=== PATIENT | female | born 1995 | race Caucasian/White ===

== ENCOUNTER 2016-05-03 17:39 | Emergency (ER) | payer OTHER ==
[~2016-05-03] VITALS: Ht 163.8 cm; Wt 63.6 kg
[~2016-05-03 17:39] MED LIST: ACYC400T2 PO; BACTDS PO; IBUP400T22 PO; MUPI22OI2 TOP; ONDA4TAB35 PO
[2016-05-03 18:52] VITALS: Ht 163.8 cm; Wt 63.6 kg
[2016-05-03] MEDS ORDERED: KENC1 TOP (19:14)
[2016-05-03] MEDS ORDERED: HYDR-3011 PO (19:15)
--- NOTE | 2016-05-03 19:48 | ERD ---
ER Documentation Chief Complaint Date/Time DATE: 05/03/16 TIME: 19:46 Chief Complaint RASH BILATERAL POSTERIOR KNEE X2 DAYS DENIES FEVER HPI 21-year-old female presents here in emergency department for complaint of rash on bilateral back of the knee for 2 days. Patient's complaining of itching. Patient denies any fever or chills. Patient denies any rash in other parts of the body. Patient denies any open wounds. Patient did not take any medications of symptoms. ROS All systems reviewed and are negative except as per history of present illness. Medications Home Meds Active Scripts Hydroxyzine Hcl* (Hydroxyzine Hcl*) 25 Mg Tablet, 25 MG PO Q8H Y for ITCHING, # 30 TAB Prov:ELVIRA OLIVAS NP 05/03/16 Triamcinolone Acetonide (Triamcinolone Acetonide) 0.1% - 15 Gm Cream.gm., 1 APPLIC TOP BID, #1 TUB Prov:ELVIRA OLIVAS NP 05/03/16 Mupirocin* (Bactroban*) 2% -22 Gram Oint...g., 1 APPLIC TOP BID for 7 Days, EA Prov:KEATON NAIK MD 11/22/15 Sulfamethoxazole-Trimethoprim* (Bactrim* DS) 800-160 Mg Tab, 1 TAB PO BID, #14 TAB Prov:KEATON NAIK MD 11/22/15 Acyclovir* (Acyclovir*) 400 Mg Tablet, 400 MG PO TID for 5 Days, TAB Prov:EKATON NAIK MD 11/22/15 Ibuprofen* (Motrin*) 400 Mg Tab, 400 MG PO Q6, #30 TAB 0 Refills Prov:MARGIE ROWLAND PA-C 05/08/15 Ondansetron Hcl* (Zofran* ODT) 4 mg -ODT Tab.disper, 4 MG PO DAILY Y for NAUSEA AND/OR VOMITING, #10 TAB 0 Refills Prov:MARGIE ROWLAND PA-C 05/08/15 Allergies Allergies: Coded Allergies: No Known Drug Allergies (Verified Allergy, Unknown, 11/22/15) PMhx/Soc Medical and Surgical Hx: pt denies Medical Hx, pt denies Surgical Hx History of Surgery: No Anesthesia Reaction: No Hx Neurological Disorder: No Hx Respiratory Disorders: No Hx Cardiac Disorders: No Hx Psychiatric Problems: No Hx Miscellaneous Medical Probl: No Hx Alcohol Use: No Hx Substance Use: No Hx Tobacco Use: No FmHx Family History: No coronary disease, No diabetes, No other Physical Exam Vitals Vital Signs Date Time Temp Pulse Resp B/P Pulse Ox O2 Delivery O2 Flow Rate FiO2 05/03/16 18:52 99.8 96 20 110/62 98 Physical Exam GENERAL: The patient is well developed and appropriate for usual state of health, in no apparent distress. CHEST: Clear to auscultation bilaterally. There are no rales, wheezes or rhonchi. HEART: Regular rate and rhythm. No murmurs, clicks, rubs or gallops. No S3 or S4. ABDOMEN: Soft, nontender and nondistended. Good bowel sounds. No rebound or guarding. No gross peritonitis. No gross organomegaly or masses. No Bailey sign or McBurney point tenderness. BACK: No midline or flank tenderness. EXTREMITIES: Equal pulses bilaterally. There is no peripheral clubbing, cyanosis or edema. No focal swelling or erythema. Full range of motion. Grossly neurovascularly intact. NEURO: Alert and oriented. Cranial nerves 2-12 intact. Motor strength in all 4 extremities with 5/5 strength. Sensation grossly intact. Normal speech and gait. SKIN: Maculopapular rash noted in the back of the knee. There is no apparent ecchymosis or petechia. The skin is warm and dry. HEMATOLOGIC AND LYMPHATIC: There is no evidence of excessive bruising or lymphedema. No gross cervical, axillary, or inguinal lymphadenopathy. Procedures/MDM Medical decision making: Patient's symptoms of most likely consistent with possible dermatitis, possible eczema, noted to be contagious rash at this time. No symptoms of any sepsis. No symptoms of any coagulopathies. No symptoms of any petechiae. Patient was given for hydroxyzine, triamcinolone 1% cream, to apply on affected area, take medications as prescribed. Patient is advised to return to emergency department for any worsening symptoms. Departure Diagnosis: Primary Impression: Dermatitis Condition: Stable Patient Instructions: Atopic Dermatitis (Eczema) ELVIRA OLIVAS NP May 03, 2016 19:48
== END 2016-05-03 19:17 | disposition home or self-care (01) ==
LOC: E/R 17:39
DX: L25.9 Unspecified contact dermatitis, unspecified cause (principal)
CPT/HCPCS: 99284

== ENCOUNTER 2016-06-13 00:08 | Emergency (ER) | payer OTHER ==
[~2016-06-13] VITALS: Ht 162.6 cm; Wt 65.0 kg
[~2016-06-13 00:08] MED LIST changes: +HYDR-3011 PO; +KENC1 TOP
[2016-06-13 00:13] VITALS: Ht 162.6 cm; Wt 65.0 kg
[2016-06-13] MEDS ORDERED: DIPHENHYDRAMINE 25 MG CAP PO ONE (02:00)
[2016-06-13] MEDS ORDERED: NAPH15DR22 BOTH EYES (02:03)
[2016-06-13] MEDS ORDERED: BEN50 PO (02:03)
--- NOTE | 2016-06-13 02:20 | ERD ---
ER Documentation Chief Complaint Date/Time DATE: 06/13/16 TIME: 02:15 Chief Complaint under eye swelling started an hr ago HPI 21-year-old female presents to emergency department for complaints of swelling on bilateral facial area surrounding bilateral eyes after rubbing eyes 1 hour prior to arrival. Patient rubbed both eyes, it becomes more swollen afterwards. Patient does not have any stridor or shortness of breath. Patient did not take any medications of symptoms. Patient is complaining of itching of affected area. Patient denies any eye pain. Patient denies any fever or chills. ROS All systems reviewed and are negative except as per history of present illness. Medications Home Meds Active Scripts Diphenhydramine Hcl* (Benadryl*) 50 Mg Cap, 50 MG PO Q6, #30 CAP Prov:ELVIRA OLIVAS NP 06/13/16 Naphazoline-Pheniramine* (Visine-A*) 15 Ml Drops, 2 DROP BOTH EYES Q4H Y for eye itching, #1 BOT Prov:ELVIRA OLIVAS NP 06/13/16 Hydroxyzine Hcl* (Hydroxyzine Hcl*) 25 Mg Tablet, 25 MG PO Q8H Y for ITCHING, # 30 TAB Prov:ELVIRA OLIVAS NP 05/03/16 Triamcinolone Acetonide (Triamcinolone Acetonide) 0.1% - 15 Gm Cream.gm., 1 APPLIC TOP BID, #1 TUB Prov:ELVIRA OLIVAS NP 05/03/16 Mupirocin* (Bactroban*) 2% -22 Gram Oint...g., 1 APPLIC TOP BID for 7 Days, EA Prov:KEATON NAIK MD 11/22/15 Sulfamethoxazole-Trimethoprim* (Bactrim* DS) 800-160 Mg Tab, 1 TAB PO BID, #14 TAB Prov:KEATON NAIK MD 11/22/15 Acyclovir* (Acyclovir*) 400 Mg Tablet, 400 MG PO TID for 5 Days, TAB Prov:KEATON NAIK MD 11/22/15 Ibuprofen* (Motrin*) 400 Mg Tab, 400 MG PO Q6, #30 TAB 0 Refills Prov:MARGIE ROWLAND PA-C 05/08/15 Ondansetron Hcl* (Zofran* ODT) 4 mg -ODT Tab.disper, 4 MG PO DAILY Y for NAUSEA AND/OR VOMITING, #10 TAB 0 Refills Prov:JANETTMARGIE POLLOCK 05/08/15 Allergies Allergies: Coded Allergies: No Known Drug Allergies (Verified Allergy, Unknown, 11/22/15) PMhx/Soc Immunizations: Up to date Medical and Surgical Hx: pt denies Medical Hx, pt denies Surgical Hx History of Surgery: No Anesthesia Reaction: No Hx Neurological Disorder: No Hx Respiratory Disorders: No Hx Cardiac Disorders: No Hx Psychiatric Problems: No Hx Miscellaneous Medical Probl: No Hx Alcohol Use: No Hx Substance Use: No Hx Tobacco Use: No Smoking Status: Never smoker FmHx Family History: No coronary disease, No diabetes, No other Physical Exam Vitals Vital Signs Date Time Temp Pulse Resp B/P Pulse Ox O2 Delivery O2 Flow Rate FiO2 06/13/16 00:13 97.9 91 20 119/73 98 Physical Exam GENERAL: The patient is well developed and appropriate for usual state of health, in no apparent distress. HEENT: Atraumatic. Bilateral eyes are PERRL EOM intact, bilateral skin surrounding the bilateral eyes noted to be swollen, nonerythematous, nontender on palpation. Bilateral eye conjunctival is normal, no erythema. Ears: Normal tympanic membrane, no erythema or bulging. No ear canal swelling. No ear discharge. Nose: normal nasal turbinates, no erythema or swelling. Normal nasal discharge. Throat: oropharynx clear. No tonsillar swelling or tonsillar exudates. No lymphadenopathy. CHEST: Clear to auscultation bilaterally. There are no rales, wheezes or rhonchi. HEART: Regular rate and rhythm. No murmurs, clicks, rubs or gallops. No S3 or S4. ABDOMEN: Soft, nontender and nondistended. Good bowel sounds. No rebound or guarding. No gross peritonitis. No gross organomegaly or masses. No Bailey sign or McBurney point tenderness. BACK: No midline or flank tenderness. EXTREMITIES: Equal pulses bilaterally. There is no peripheral clubbing, cyanosis or edema. No focal swelling or erythema. Full range of motion. Grossly neurovascularly intact. NEURO: Alert and oriented. Cranial nerves 2-12 intact. Motor strength in all 4 extremities with 5/5 strength. Sensation grossly intact. Normal speech and gait. SKIN: There is no apparent rash or petechia. The skin is warm and dry. HEMATOLOGIC AND LYMPHATIC: There is no evidence of excessive bruising or lymphedema. No gross cervical, axillary, or inguinal lymphadenopathy. Results 24 hrs Current Medications Medications (Trade) Dose Ordered Sig/Ryan Route PRN Reason Start Time Stop Time Status Last Admin Dose Admin Diphenhydramine HCl (Benadryl) 25 mg ONCE ONCE PO 06/13/16 02:00 06/13/16 02:01 DC 06/13/16 02:02 Benadryl given here in emergency department, tolerated medication well. Procedures/MDM Medical decision making: Patient has bilateral periorbital swelling, most likely can be reaction from rubbing both eyes earlier, most likely allergic. No symptoms of any acute bacterial infection, low suspicion for orbital or periorbital cellulitis. Normal EOM without any pain. Patient denies any deformity sensation the eye. Patient does not have any eye pain. Patient was given for Naphcon, Benadryl, is advised to follow-up with primary care doctor in 2-3 days, return to emergency department for eye pain, vision changes, or any other worsening symptoms. Departure Diagnosis: Primary Impression: Allergic reaction Encounter type: initial encounter Qualified Code: T78.40XA - Allergic reaction, initial encounter Condition: Stable Patient Instructions: First Aid: Allergic Reactions ELVIRA OLIVAS NP Jun 13, 2016 02:20
== END 2016-06-13 02:35 | disposition home or self-care (01) ==
LOC: FTE 00:08
DX: R22.0 Localized swelling, mass and lump, head (principal); L29.9 Pruritus, unspecified
CPT/HCPCS: Z7502; Z7610; 99283

== ENCOUNTER 2016-08-05 06:37 | Emergency (ER) | payer OTHER ==
[~2016-08-05] VITALS: Ht 162.6 cm; Wt 66.0 kg
[~2016-08-05 06:37] MED LIST changes: +BEN50 PO; +NAPH15DR22 BOTH EYES
[2016-08-05 06:40] VITALS: Ht 162.6 cm; Wt 66.0 kg
[2016-08-05] MEDS ORDERED: DIPHENHYDRAMINE 25 MG CAP PO ONE (07:00)
[2016-08-05] MEDS ORDERED: METHYLPREDNISOLONE 125 MG INJ IM ONE (07:00)
[2016-08-05] MEDS ORDERED: FAMOTIDINE 20 MG TAB PO ONE (07:00)
[2016-08-05] MEDS ORDERED: BEN25 PO (07:56)
[2016-08-05] MEDS ORDERED: EPIN0.3P4 INJ (07:56)
[2016-08-05] MEDS ORDERED: PRED20TA PO (07:56)
[2016-08-05] MEDS ORDERED: NAPH15DR22 BOTH EYES (08:05)
--- NOTE | 2016-08-05 12:37 | ERD ---
ER Documentation Chief Complaint Date/Time DATE: 08/05/16 TIME: 12:32 Chief Complaint Complains of eye burning, itching and swelling HPI 21-year-old female patient with no significant past medical history presents to the ED complaining of bilateral swelling of skin surrounding the eyes, after taking ibuprofen. Patient reports that this happened before when after taking Aleve and ibuprofen. Denies any fever, chills, eye pain, diplopia, photophobia , phonophobia, vision loss. ROS All systems reviewed and are negative except as per history of present illness. Medications Home Meds Active Scripts Naphazoline-Pheniramine* (Visine-A*) 15 Ml Drops, 2 DROP BOTH EYES Q4H Y for ITCHING, #1 EA Prov:SORIN HUGHES PA-C 08/05/16 Epinephrine (Epipen 2-Patrick) 0.3 Mg/0.3 Ml Pen.injctr, 1 EA INJ ONCE Y for ALLERGIC REACTION, #1 EA Prov:SORIN HUGHES PA-C 08/05/16 Prednisone* (Prednisone*) 20 Mg Tab, 40 MG PO DAILY for 4 Days, TAB Prov:SORIN HUGHES PA-C 08/05/16 Diphenhydramine Hcl* (Benadryl*) 25 Mg Cap, 25 MG PO Q6 Y for ITCHING/RASH, #30 TAB Prov:SORIN HUGHES PA-C 08/05/16 Diphenhydramine Hcl* (Benadryl*) 50 Mg Cap, 50 MG PO Q6, #30 CAP Prov:ELVIRA OLIVAS NP 06/13/16 Naphazoline-Pheniramine* (Visine-A*) 15 Ml Drops, 2 DROP BOTH EYES Q4H Y for eye itching, #1 BOT Prov:ELVIRA OLIVAS NP 06/13/16 Hydroxyzine Hcl* (Hydroxyzine Hcl*) 25 Mg Tablet, 25 MG PO Q8H Y for ITCHING, # 30 TAB Prov:ELVIRA OLIVAS NP 05/03/16 Triamcinolone Acetonide (Triamcinolone Acetonide) 0.1% - 15 Gm Cream.gm., 1 APPLIC TOP BID, #1 TUB Prov:ELVIRA OLIVAS NP 05/03/16 Mupirocin* (Bactroban*) 2% -22 Gram Oint...g., 1 APPLIC TOP BID for 7 Days, EA Prov:KEATON NAIK MD 11/22/15 Sulfamethoxazole-Trimethoprim* (Bactrim* DS) 800-160 Mg Tab, 1 TAB PO BID, #14 TAB Prov:KEATON NAIK MD 11/22/15 Acyclovir* (Acyclovir*) 400 Mg Tablet, 400 MG PO TID for 5 Days, TAB Prov:KEATON NAIK MD 11/22/15 Ibuprofen* (Motrin*) 400 Mg Tab, 400 MG PO Q6, #30 TAB 0 Refills Prov:MARGIE ROWLAND PA-C 05/08/15 Ondansetron Hcl* (Zofran* ODT) 4 mg -ODT Tab.disper, 4 MG PO DAILY Y for NAUSEA AND/OR VOMITING, #10 TAB 0 Refills Prov:MARGIE ROWLAND PA-C 05/08/15 Allergies Allergies: Coded Allergies: ibuprofen (Verified Allergy, Mild, 08/05/16) No Known Drug Allergies (Verified Allergy, Unknown, 11/22/15) PMhx/Soc History of Surgery: No Anesthesia Reaction: No Hx Neurological Disorder: No Hx Respiratory Disorders: No Hx Cardiac Disorders: No Hx Psychiatric Problems: No Hx Miscellaneous Medical Probl: No Hx Alcohol Use: No Hx Substance Use: No Hx Tobacco Use: No Physical Exam Vitals Vital Signs Date Time Temp Pulse Resp B/P Pulse Ox O2 Delivery O2 Flow Rate FiO2 08/05/16 06:40 98.1 85 20 114/73 99 Physical Exam Const: [id number], well-nourished. In no acute distress. Head: Atraumatic, normocephalic Eyes: Normal Conjunctiva without injection. No purulent discharge. PERRLA. EOMI ENT: Normal external ear. Ear canal without erythema. Tympanic membrane pearly moore without effusion or bulging. Nasal canal clear with normal turbinates. Moist oropharynx without tonsillar exudates. Non-erythematous pharynx. Uvula midline. No drooling. No trismus. Neck: No cervical midline tenderness. Full range of motion. No meningismus. No cervical lymphadenopathy. No JVD. Resp: Clear to auscultation bilaterally. No wheezing, rhonchi, rales, or crackles. No accessory muscle use. No retractions. Cardio: Regular rate and rhythm. No murmurs, rubs or gallops. Abd: Soft, non tender, non distended. Normal bowel sounds. No palpable masses. No rebound tenderness. No guarding. Negative McBurney's Point. Negative Bailey's Sign. Skin: Normal skin turgor. No petechiae or rashes Back: No midline tenderness. No CVA tenderness. Ext: No cyanosis, or edema. Distal pulses intact bilaterally. Neur: Awake and alert. Normal gait. Normal coordination. Cranial Nerves II- VII intact. Normal finger to nose. Muscle strength 5/5. Sensation intact. Psych: Normal Mood and Affect Results 24 hrs Current Medications Medications (Trade) Dose Ordered Sig/Ryan Route PRN Reason Start Time Stop Time Status Last Admin Dose Admin Methylprednisolone Sodium Succinate (Solu-Medrol) 125 mg ONCE ONCE IM 08/05/16 07:00 08/05/16 07:02 DC 08/05/16 07:13 Diphenhydramine HCl (Benadryl) 25 mg ONCE ONCE PO 08/05/16 07:00 08/05/16 07:02 DC 08/05/16 07:14 Famotidine (Pepcid) 20 mg ONCE ONCE PO 08/05/16 07:00 08/05/16 07:02 DC 08/05/16 07:13 Procedures/MDM 21-year-old female patient with no significant past medical history presents to the ED complaining of bilateral swelling surrounding her eyes after taking ibuprofen. Patient is afebrile and nontoxic-appearing. Patient has normal vital signs. Patient likely has an allergic reaction due to taking ibuprofen. Patient was given Decadron, Benadryl, famotidine here in the ED with improvement of her symptoms. Strictly instructed patient to not take ibuprofen , Aleve, Motrin, naproxen. Low suspicion for anaphylaxis. No tongue or lip swelling. Instructed patient to follow-up with her primary care physician for allergy testing. Other differential diagnosis considered include but is not limited to allergic contact dermatitis, urticaria, insect bites, eczema, tinea infection, psoriasis. Low suspicion for scabies, SJS/TEN, erythema multiforme, sepsis, cellulitis, necrotizing fascitis, gangrene, meningococcemia or other emergent conditions. Patient's ocular symptoms have stabilized while they have been evaluated in the department and are appropriate for outpatient work up. Low suspicion for ruptured globe, retinal detachment, periorbital cellulitis, acute angle closure glaucoma, deep space infection, iritis, traumatic hyphema, conjunctivitis, subconjunctival hemorrhage, corneal abrasion, corneal ulcer, pterygium, hypopyon, blepharitis, hordeolum, chalazion, or other emergent conditions. Discharge medications: Benadryl, famotidine, EpiPen, Prednisone Follow up with primary care physician in 1-2 days. Instructed patient to return to the ED sooner for any worsening symptoms. Patient's questions were answered. Patient understood and agreed with discharge plan. Patient discharged stable. Departure Diagnosis: Primary Impression: Eye swelling, bilateral Condition: Stable Patient Instructions: Allergic Reaction, Other (General) Referrals: [facility] YOU HAVE RECEIVED A MEDICAL SCREENING EXAM AND THE RESULTS INDICATE THAT YOU DO NOT HAVE A CONDITION THAT REQUIRES URGENT TREATMENT IN THE EMERGENCY DEPARTMENT. FURTHER EVALUATION AND TREATMENT OF YOUR CONDITION CAN WAIT UNTIL YOU ARE SEEN IN YOUR DOCTORS OFFICE WITHIN THE NEXT 1-2 DAYS. IT IS YOUR RESPONSIBILITY TO MAKE AN APPOINTMENT FOR [facility]. IF YOU HAVE A PRIMARY DOCTOR --you should call your primary doctor and schedule an appointment IF YOU DO NOT HAVE A PRIMARY DOCTOR YOU CAN CALL OUR PHYSICIAN REFERRAL HOTLINE AT IF YOU CAN NOT AFFORD TO SEE A PHYSICIAN YOU CAN CHOSE FROM THE FOLLOWING [facility] [address] [facility]. [facility] [address] [place] [facility]. [facility] [address] [facility] [address] [facility]. [facility] [address] [facility]. [facility]. [address] [facility] YOU HAVE RECEIVED A MEDICAL SCREENING EXAM AND THE RESULTS INDICATE THAT YOU DO NOT HAVE A CONDITION THAT REQUIRES URGENT TREATMENT IN THE EMERGENCY DEPARTMENT. FURTHER EVALUATION AND TREATMENT OF YOUR CONDITION CAN WAIT UNTIL YOU ARE SEEN IN YOUR DOCTORS OFFICE WITHIN THE NEXT 1-2 DAYS. IT IS YOUR RESPONSIBILITY TO MAKE AN APPOINTMENT FOR FOLOW-UP CARE. IF YOU HAVE A PRIMARY DOCTOR --you should call your primary doctor and schedule and appointment IF YOU DO NOT HAVE A PRIMARY DOCTOR YOU CAN CALL OUR PHYSICIAN REFERRAL HOTLINE AT . IF YOU CAN NOT AFFORD TO SEE A PHYSICIAN YOU CAN CHOSE FROM THE FOLLOWING [facility] INSTITUTIONS: [facility] [address] [place] [address] [facility] [address] [place] [address] [facility] [address] [place] [address] [facility] URGENT CARE/SPECIALTIES Additional Instructions: FOLLOW UP WITH YOUR PRIMARY CARE PHYSICIAN TOMORROW for allergy testing.Return to this facility if you are not improving as expected. SORIN HUGHES PA-C Aug 05, 2016 12:37
== END 2016-08-05 08:19 | disposition home or self-care (01) ==
LOC: FTE 06:37
DX: H57.8 Other specified disorders of eye and adnexa (principal)
CPT/HCPCS: J2930; Z7610; 96372

== ENCOUNTER 2017-02-22 20:29 | Emergency (ER) | END 2017-02-22 21:11 | disposition home or self-care (01) ==

== ENCOUNTER 2017-11-04 20:35 | Emergency (ER) | END 2017-11-04 22:23 | disposition home or self-care (01) ==

== ENCOUNTER 2017-11-15 15:52 | Emergency (ER) | END 2017-11-15 19:04 | disposition home or self-care (01) ==

== ENCOUNTER 2018-02-06 17:06 | Emergency (ER) | END 2018-02-06 17:57 | disposition home or self-care (01) ==